=== PATIENT | female | born 1995 | race Caucasian/White ===

== ENCOUNTER 2018-12-26 20:08 | Emergency (ER) | payer BC, OTHER ==
[2018-12-26 20:23] VITALS: BP 134/70
--- NOTE | 2018-12-26 20:36 | UC ---
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 1800 this afternoon as pt. was beginning to paint her house." - History of Current Complaint Chief Complaint: UCGeneralIllness Stated Complaint: RT SIDE RIB PAIN Time Seen by Provider: 12/26/18 20:34 Hx Last Menstrual Period: IUD Pain Intensity: 6 - Allergy/Home Medications Allergies/Adverse Reactions: Allergies Allergy/AdvReac Type Severity Reaction Status Date / Time Sulfa (Sulfonamide Allergy Unknown Verified 12/26/18 20:17 Antibiotics) Reaction Details Home Medications: Home Medications Iud 1 applic VAGINAL ONCE 12/26/18 [History] PMH/Surg Hx/FS Hx/Imm Hx - Surgical History Surgical History: Yes Surgery Procedure, Year, and Place: Tonsilectomy - Social History Alcohol Use: Weekly Substance Use Type: None Smoking Status (MU): Never Smoked Tobacco Physical Exam Vital Signs: Initial Vital Signs Temp 99.6 F 12/26/18 20:18 Pulse 69 12/26/18 20:18 Resp 16 12/26/18 20:18 BP 134/70 12/26/18 20:18 Pulse Ox 100 12/26/18 20:18 Discharge - Discharge Plan Referrals: No Primary Care Phys,NOPCP [Primary Care Provider] -
--- NOTE | 2018-12-26 20:53 | UC ---
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 1800 this afternoon as pt. was beginning to paint her house." -she had just started painting the house. pain onset was sudden. constant, sharp. no n/v/d. no fevers/chills. -ate gu[place] food a few hrs prior to onset of pain. -hurts to takea deep breath. -no constipation hx. no dysuria or hematuria. no pain into shoulder/scapula. -max pain 7/10, but does disipate to lower level of pain at times. -laying down makes it worse. -Mom in 2017 d/t complications after GB resection at [facility] - History of Current Complaint Chief Complaint: UCGeneralIllness Stated Complaint: RT SIDE RIB PAIN Time Seen by Provider: 12/26/18 20:34 Hx Last Menstrual Period: IUD Pain Intensity: 6 Allergies/Adverse Reactions: Allergies Allergy/AdvReac Type Severity Reaction Status Date / Time Sulfa (Sulfonamide Allergy Unknown Verified 12/26/18 20:17 Antibiotics) Reaction Details Home Medications: Home Medications Iud 1 applic VAGINAL ONCE 12/26/18 [History] PMH/Surg Hx/FS Hx/Imm Hx Previously Healthy: Yes - Surgical History Surgical History: Yes Surgery Procedure, Year, and Place: Tonsilectomy - Family History Known Family History: Positive: Other - Mom s/p cholecystectomy complications - Social History Alcohol Use: Weekly Substance Use Type: None Smoking Status (MU): Never Smoked Tobacco Review of Systems All Other Systems Reviewed And Are Negative: Yes Constitutional: Positive: Negative. Negative: Fever, Chills, Fatigue Skin: Positive: Negative. Negative: Rash, Bruising Eyes: Positive: Negative ENT: Positive: Negative Respiratory: Positive: Other - pain w/ deep breathing. Negative: Cough Cardiovascular: Positive: Negative. Negative: Palpitations, Chest Pain Gastrointestinal: Positive: Abdominal Pain. Negative: Vomiting, Diarrhea, Nausea Genitourinary: Positive: Negative. Negative: Dysuria, Hematuria Motor: Positive: Negative Neurovascular: Positive: Negative Musculoskeletal: Positive: Negative. Negative: Arthralgia, Myalgia Neurological: Positive: Negative Psychological: Positive: Negative Is Patient Immunocompromised?: No Physical Exam Triage Information Reviewed: Yes Appearance: Well-Appearing - initially appears in mild distress but then improves and able to ambulate [facility] any distress, Well-Nourished - very pleasant, good historian. Vital Signs: Initial Vital Signs Temp 99.6 F 12/26/18 20:18 Pulse 69 12/26/18 20:18 Resp 16 12/26/18 20:18 BP 134/70 12/26/18 20:18 Pulse Ox 100 12/26/18 20:18 Eye Exam: Normal Eyes: Positive: Conjunctiva Clear, Other: - no jaundice or icterus ENT Exam: Normal ENT: Positive: Pharynx normal, TMs normal Dental Exam: Normal Neck exam: Normal Neck: Positive: Supple, Nontender, No Lymphadenopathy Respiratory Exam: Normal Respiratory: Positive: Lungs clear, Normal breath sounds, No respiratory distress, No accessory muscle use. Negative: Crackles, Rhonchi, Stridor, Wheezing Cardiovascular Exam: Normal Cardiovascular: Positive: RRR, No Murmur, Pulses Normal, Brisk Capillary Refill Abdomen Description: Positive: No Organomegaly, Soft, Other: - mild tenderness at inferior costal margin initially but then disipates. neg Luciano's sign.. Negative: CVA Tenderness (R), CVA Tenderness (L), Distended, Guarding, Hepatomegaly, McBurney's Point Tenderness, Peritoneal Signs, Pulsatile Mass, Splenomegaly Bowel Sounds: Positive: Present Musculoskeletal Exam: Normal Neurological Exam: Normal Neurological: Positive: Muscle Tone Normal Psychological Exam: Normal Skin Exam: Normal Skin: Negative: Rashes Abd Pain Female Course/Dx - Course Course Of Treatment: Initial recommendation is evaluation in ER for acute cholcystitsis as US in NA here. howerer, pain is improved and she reassures me that she will follow up with her PCP tomorrow and go to the ER overnight if the symptoms recur. she is a reliable historian KUB -intrepreted by myself, not RAD physician - official read will be done tomorrow she is aware. - Differential Dx/Diagnosis Differential Diagnosis: Constipation, Gall Bladder Disease, Hepatitis, Pancreatitis Provider Diagnosis: Right upper quadrant abdominal pain Discharge - Sign-Out/Discharge Documenting (check all that apply): Patient Departure All imaging exams completed and their final reports reviewed: No - Discharge Plan Condition: Stable Disposition: HOME Patient Education Materials: Gas and Bloating (ED), Abdominal Pain (ED) Referrals: No Primary Care Phys,NOPCP [Primary Care Provider] - [facility] [place] PHYSICIAN REFERRAL [Outside] - 1 Day Additional Instructions: Please make sure to call your PCP office at [facility] next door to be seen tomorrow. If not available, please call the [facility] coordinator to help arrange for a PCP in timely mannor Please go directly to the ER if your symptoms recur. - Billing Disposition and Condition Condition: STABLE Disposition: Home
--- NOTE | 2018-12-27 10:27 | UC ---
- Progress Note Progress Note: xray report abd: IMPRESSION: NONOBSTRUCTIVE BOWEL GAS PATTERN. LARGE AMOUNT OF STOOL WITHIN THE PROXIMAL COLON. Course/Dx - Diagnoses Provider Diagnoses: Right upper quadrant abdominal pain Discharge - Sign-Out/Discharge Documenting (check all that apply): Patient Departure All imaging exams completed and their final reports reviewed: Yes - Discharge Plan Condition: Stable Disposition: HOME Patient Education Materials: Gas and Bloating (ED), Abdominal Pain (ED) Referrals: [facility] [place] PHYSICIAN REFERRAL [Outside] - 1 Day No Primary Care Phys,NOPCP [Primary Care Provider] - Additional Instructions: Please make sure to call your PCP office at [facility] next door to be seen tomorrow. If not available, please call the [facility] [place] [facility] coordinator to help arrange for a PCP in timely mannor Please go directly to the ER if your symptoms recur. - Billing Disposition and Condition Condition: STABLE Disposition: Home
== END 2018-12-26 21:51 | disposition home or self-care (01) ==
LOC: UCCORT 20:08
DX: R10.11 Right upper quadrant pain (principal)
CPT/HCPCS: 74018; 99201; G0463

== ENCOUNTER 2023-11-10 08:43 | Inpatient (IN) ==
[2023-11-10] MEDS ORDERED: Lidocaine 1% VIAL 10 MG/ML 30 ML VIAL INJ PRN (09:12)
[2023-11-10] MEDS ORDERED: Prochlorperazine 5 mg/ml 2 ml VIAL (10 mg) IV PRN (09:12)
[2023-11-10] MEDS ORDERED: Nalbuphine 10 MG/ML 1 ML VIAL IV PRN (09:12)
[2023-11-10] MEDS: Buffered Lidocaine 1% SYRIN 1 ml INTRADERM ONE (09:43)
[2023-11-10] MEDS: Lactated Ringers 1000 ml BAG 1,000 ML IV ONE (09:44)
[2023-11-10] MEDS: Penicillin G Potassium IV 5,000,000 UNITS in NS 0.9% 100 ml BAG 100 ML IVPB ONE (09:47)
[2023-11-10 10:52] LABS: Urine Benzodiazepine Screen None Detected (None Detect); Urine Cannabinoids Screen None Detected (None Detect); Urine Opiates Screen None Detected (None Detect)
[2023-11-10] MEDS: Lidocaine 2% JELLY 6 ML Topical TOPICAL ONE (11:51)
[2023-11-10] MEDS: Lactated Ringers 1000 ml BAG 1,000 ML IV SCH (12:45)
[2023-11-10] MEDS: Penicillin G Potassium IV 3,000,000 UNITS in NS 0.9% 100 ml BAG 100 ML IVPB SCH (13:25)
[2023-11-10 14:03] LABS: ABS Lymphocytes 1.3 10^3/uL (1.0-4.8); ABS Monocytes 0.5 10^3/uL (0.0-0.9); ABS Neutrophils 10.1 10^3/uL (1.5-7.6); Eosinophil % 0.1 %; Hematocrit 41.4 % (35-45); Hemoglobin 13.9 g/dL (11.5-14.3); Lymphocyte % 10.7 %; Mean Corpuscular Hemoglobin 28.3 pg (27-33); Mean Corpuscular Hgb Conc 33.6 g/dL (31-36); Mean Corpuscular Volume 84.4 fL (80-97); Mean Platelet Volume 9.4 fL (7.5-11.2); Platelet Count 231 10^3/uL (150-450); Red Blood Count 4.91 10^6/uL (3.63-4.92); Red Cell Distribution Width 14.1 % (12-17); White Blood Count 11.9 10^3/uL (3.8-11.8)
[2023-11-10] MEDS ORDERED: Glycerin ADULT 2.4 gm SUPP PR PRN (15:21)
[2023-11-10] MEDS ORDERED: Lactated Ringers 1000 ml BAG 1,000 ML IV SCH (16:00)
[2023-11-10] MEDS: Oxytocin in LR 20,000 MILLI.UNIT/1,000 ML BAG IV SCH ×2 (17:26→17:34)
[2023-11-10] MEDS: Dibucaine 1% OINT 28.35 GM TUBE PR PRN (22:53)
[2023-11-11] MEDS: Witch Hazel PAD JAR TOPICAL PRN (09:12)
[2023-11-11 09:20] LABS: ABS Lymphocytes 1.8 10^3/uL (1.0-4.8); ABS Monocytes 0.7 10^3/uL (0.0-0.9); ABS Neutrophils 10.6 10^3/uL (1.5-7.6); ABS Nucleated RBC 0.01 10^3/ul; Eosinophil % 0.1 %; Hematocrit 38.6 % (35-45); Lymphocyte % 13.8 %; Mean Corpuscular Hemoglobin 28.5 pg (27-33); Mean Corpuscular Hgb Conc 33.7 g/dL (31-36); Mean Corpuscular Volume 84.4 fL (80-97); Nucleated Red Blood Cells % 0.1 %/100WBC (0.0-0.8); Platelet Count 221 10^3/uL (150-450); Red Blood Count 4.58 10^6/uL (3.63-4.92); Red Cell Distribution Width 14.2 % (12-17); White Blood Count 13.1 10^3/uL (3.8-11.8)
[2023-11-12 09:39] VITALS: BP 119/63
== END 2023-11-12 13:04 | disposition home or self-care (01) | DRG 807 ==
LOC: MCHOBOUT 08:43 → MCHOB 09:13
PROVIDERS: ADMIT Advanced Practice Midwife; ATTEND Advanced Practice Midwife